=== PATIENT | female | born 1975 | race Caucasian/White ===

== ENCOUNTER 2016-06-12 08:34 | Day surgery (SDC) | payer OTHER ==
[~2016-06-12 08:34] MED LIST: BIRTH CONTROL PILL; MULTIVITAMIN; PARAGARD T 3801 EACH IU; SOLU MEDROL; TAGAMET400 MG PO
== END 2016-06-12 15:25 ==
LOC: SRG 08:34 → SHSC 08:39 → PACU 13:17 → SHSC 13:52
PROC: 0HBT0ZX Excision of Right Breast, Open Approach, Diagnostic (ICD-10-PCS; principal; 2016-06-12)
DX: D05.01 Lobular carcinoma in situ of right breast (principal); Z90.49 Acquired absence of other specified parts of digestive tract; Z98.890 Other specified postprocedural states
CPT/HCPCS: J0690; J2250; J3010